=== PATIENT | female | born 1980 | race Caucasian/White ===

== ENCOUNTER 2019-10-27 12:47 | Emergency (ER) | payer MEDICAID ==
[2019-10-27] MEDS ORDERED: NALOXONE HCL INJ 2 MG/2 ML DISP.SYRIN ONE (13:04)
[2019-10-27] MEDS ORDERED: NALOXONE HCL INJ 2 MG/2 ML DISP.SYRIN IV ONE (13:06)
[2019-10-27] MEDS ORDERED: NORMAL SALINE 1000 ML 1,000 ML IV ONE ×2 (13:08→19:09)
[2019-10-27 13:12] LABS: ABSOLUTE BASOPHILS # (AUTO) 0.1 10^3/uL (0.0-0.2); ABSOLUTE EOSINOPHILS # (AUTO) 0.1 10^3/uL (0.0-0.6); ABSOLUTE LYMPHOCYTES (AUTO) 1.4 10^3/uL (0.5-4.7); ABSOLUTE MONOCYTES (AUTO) 0.4 10^3/uL (0.1-1.4); ABSOLUTE NEUT (AUTO) 13.9 10^3/uL (1.7-8.2); BASOPHILS % (AUTO) 0.4 % (0-2); EOSINOPHILS % (AUTO) 0.5 % (0-6); HEMATOCRIT 41.8 % (36.0-47.0); LYMPHOCYTES % (AUTO) 8.6 % (13-45); MEAN CORPUSCULAR HEMOGLOBIN 30.2 pg (27.0-33.4); MEAN CORPUSCULAR HGB CONC 33.5 g/dL (32.0-36.0); MEAN CORPUSCULAR VOLUME 90 fl (80-97); MONOCYTES % (AUTO) 2.4 % (3-13); PLATELET COUNT 314 10^3/uL (150-450); RED BLOOD COUNT 4.63 10^6/uL (3.72-5.28); RED CELL DISTRIBUTION WIDTH 14.5 % (11.5-14.0); SEGMENTED NEUTROPHILS % (AUTO) 88.1 % (42-78); TOTAL CELLS COUNTED % (AUTO) 100 %; WHITE BLOOD COUNT 15.7 10^3/uL (4.0-10.5)
[2019-10-27 13:35] LABS: ALBUMIN 4.2 g/dL (3.5-5.0); ALKALINE PHOSPHATASE 42 U/L (38-126); ANION GAP 9 (5-19); ASPARTATE AMINO TRANSFERASE 25 U/L (14-36); BILIRUBIN,TOTAL 0.2 mg/dL (0.2-1.3); BLOOD UREA NITROGEN 14 mg/dL (7-20); CALCIUM 9.1 mg/dL (8.4-10.2); CARBON DIOXIDE 27 mmol/L (22-30); CHLORIDE 100 mmol/L (98-107); GLUCOSE 260 mg/dL (75-110); POTASSIUM 5.1 mmol/L (3.6-5.0); TOTAL PROTEIN 6.7 g/dL (6.3-8.2)
[2019-10-27 13:37] LABS: ACETAMINOPHEN < 10 ug/mL (10-30); ALCOHOL < 10 mg/dL (NONE DETECTED); SALICYLATE < 1.0 mg/dL (2.0-20.0)
--- NOTE | 2019-10-27 14:23 | RADIOLOGY REPORT (SQ) ---
EXAM DESCRIPTION: CHEST SINGLE VIEW IMAGES COMPLETED DATE/TIME: 10/27/2019 2:09 pm REASON FOR STUDY: Sob COMPARISON: None. EXAM PARAMETERS: NUMBER OF VIEWS: One view. TECHNIQUE: Single frontal radiographic view of the chest acquired. RADIATION DOSE: NA LIMITATIONS: None. FINDINGS: LUNGS AND PLEURA: No opacities, masses or pneumothorax. No pleural effusion. MEDIASTINUM AND HILAR STRUCTURES: No masses. Contour normal. HEART AND VASCULAR STRUCTURES: Heart normal in size. Normal vasculature. BONES: No acute findings. HARDWARE: None in the chest. OTHER: No other significant finding. IMPRESSION: NO ACUTE RADIOGRAPHIC FINDING IN THE CHEST. TECHNICAL DOCUMENTATION: JOB ID: [id number] 2010 [employer]- All Rights Reserved Reading location - IP/workstation name: [email or web address]
[2019-10-27 17:22] LABS: APPEARANCE,URINE CLOUDY; BILIRUBIN,URINE NEGATIVE (NEGATIVE); COLOR,URINE YELLOW; GLUCOSE, URINE 150 mg/dL (NEGATIVE); KETONES,URINE TRACE mg/dL (NEGATIVE); LEUKOCYTE ESTERASE,URINE TRACE (NEGATIVE); NITRITE,URINE NEGATIVE (NEGATIVE); PROTEIN,URINE 100 mg/dL (NEGATIVE); URINE SPECIFIC GRAVITY 1.013; UROBILINOGEN,URINE NEGATIVE mg/dL (<2.0)
[2019-10-27 17:36] LABS: URINE BARBITURATES SCREEN NEGATIVE; URINE BENZODIAZEPINES SCREEN NEGATIVE; URINE COCAINE SCREEN NEGATIVE; URINE METHADONE SCREEN NEGATIVE; URINE PHENCYCLIDINE SCREEN NEGATIVE
[2019-10-27 17:41] LABS: URINE MARIJUANA (THC) SCREEN UNCONFIRMED POSITIVE
--- NOTE | 2019-10-27 18:51 | EKG REPORT ---
SEVERITY:- ABNORMAL ECG - SINUS TACHYCARDIA RUFINO, CONSIDER BIATRIAL ABNORMALITIES LEFT AXIS DEVIATION CONSIDER RIGHT VENTRICULAR HYPERTROPHY : Confirmed by: Steve Oscar MD 27-Oct-2019 18:51:11
--- NOTE | 2019-10-27 19:42 | RADIOLOGY REPORT (SQ) ---
EXAM DESCRIPTION: CT HEAD WITHOUT IMAGES COMPLETED DATE/TIME: 10/27/2019 7:32 pm REASON FOR STUDY: accidenental fall/closed head injury COMPARISON: None. TECHNIQUE: Axial images acquired through the brain without intravenous contrast. Images reviewed wi th bone, brain and subdural windows. Additional sagittal and coronal reconstructions were generated. Images stored on PACS. All CT scanners at this facility use dose modulation, iterative reconstruction, and/or weight based d osing when appropriate to reduce radiation dose to as low as reasonably achievable (ALARA). [facility]: Dose Right [facility]: CareDose [facility]: Dose Right [facility]: Teradose 4D [facility]: WhistleTalk RADIATION DOSE: CT Rad equipment meets quality standard of care and radiation dose reduction techniq ues were employed. CTDIvol: 53.2 mGy. DLP: 991 mGy-cm. mGy. LIMITATIONS: None. FINDINGS: VENTRICLES: Normal size and contour. CEREBRUM: No masses. No hemorrhage. No midline shift. No evidence for acute infarction. Normal gra y/white matter differentiation. No areas of low density in the white matter. CEREBELLUM: No masses. No hemorrhage. No alteration of density. No evidence for acute infarction. EXTRAAXIAL SPACES: No fluid collections. No masses. ORBITS AND GLOBE: No intra- or extraconal masses. Normal contour of globe without masses. CALVARIUM: No fracture. PARANASAL SINUSES: No fluid or mucosal thickening. SOFT TISSUES: No mass or hematoma. OTHER: No other significant finding. IMPRESSION: NORMAL BRAIN CT WITHOUT CONTRAST. EVIDENCE OF ACUTE STROKE: NO. COMMENT: Quality ID # [id number]: Final reports with documentation of one or more dose reduction techniques (e.g., Automated exposure control, adjustment of the mA and/or kV according to patient size, use of iterative reconstruction technique) TECHNICAL DOCUMENTATION: JOB ID: [id number] 2010 [employer]- All Rights Reserved Reading location - IP/workstation name: [email or web address]
--- NOTE | 2019-10-27 20:54 | ER Document Report ---
Entered by INGE MEHTA SCRIBE 10/27/19 1307 Acting as scribe for:AJNETH DANIEL MD ED Substance Abuse / Acc. OD <ANNIE KIRBY - Last Filed: 10/27/19 20:41> - General Mode of Arrival: Wheelchair Cannot obtain history due to: Altered mental status <JANETH DANIEL - Last Filed: 10/27/19 20:54> - General Chief Complaint: Possible Overdose Stated Complaint: POSSIBLE OVERDOSE Primary Care Provider: [facility] [Provider Group] - Follow up as needed (Outpatient dual diagnosis mental health and substance abuse treatment Walk in Thursday-Thursday 8:00AM-4:30PM) [facility] [Outside] - Follow up as needed (Can walk in or call for voluntary inpatient services) [facility] [Outside] - Follow up as needed [facility] [Outside] - Follow up as needed Notes: This 39 year old female patient presents to the emergency department today for complaints of a possible overdose. Patient is somnolent and unable to really provide any history. (JANETH DANIEL) - Related Data Allergies/Adverse Reactions: No Known Allergies Allergy (Verified 10/27/19 13:50) Past Medical History - General Cannot obtain history due to: Altered mental status - Social History Smoking Status: Unknown if Ever Smoked Lives with: Family Family History: Reviewed & Not Pertinent Surgical Hx: Negative <JANETH DANIEL - Last Filed: 10/27/19 20:54> Review of Systems - Review of Systems -: Yes ROS unobtainable due to patient's medical condition <JANETH DANIEL - Last Filed: 10/27/19 20:54> Physical Exam - Vital signs Vitals: Temp 98.8 F 10/27/19 13:00 Course - Laboratory Result Diagrams: 10/27/19 12:57 10/27/19 12:57 <ANNIE KIRBY - Last Filed: 10/27/19 20:41> - Laboratory Result Diagrams: 10/27/19 12:57 10/27/19 12:57 - Diagnostic Test Radiology reviewed: Image reviewed, Reports reviewed <JANETH DANIEL - Last Filed: 10/27/19 20:54> - Re-evaluation Re-evalutation: 10/27/19 19:12 Patient is alert and oriented except there is some loss of details of what happened today she says she awakened while in the ED she knows she is in the hospital did not know exactly where patient knows she is in [place] staying with her son who lives here in [place]. Patient is from [facility]. Patient admits that she used IV heroin today and that she has been clean for several months. Denies any suicidal homicidal ideation. Patient admits that she has bipolar disease. 10/27/19 20:52 Patient is medically stable and has been evaluated by the mental health team. Patient is medically cleared for discharge and patient will have resources to follow-up with regarding help with her accidental drug overdose of heroin. (JANETH DANIEL) - Vital Signs Vital signs: Temp Pulse Resp BP Pulse Ox 98.2 F 18 93/58 L 100 10/27/19 17:01 10/27/19 20:01 10/27/19 20:01 10/27/19 20:01 - Laboratory Laboratory results interpreted by me: 10/27/19 10/27/19 10/27/19 12:57 12:57 17:09 WBC 15.7 H RDW 14.5 H Lymph % (Auto) 8.6 L [place] % (Auto) 2.4 L Absolute Neuts (auto) 13.9 H Seg Neutrophils % 88.1 H Sodium 136.4 L Potassium 5.1 H Est GFR (MDRD) Non-Af 54 L Glucose 260 H Urine Protein 100 H Urine Glucose (UA) 150 H Urine Ketones TRACE H Ur Leukocyte Esterase TRACE H Salicylates < 1.0 L Acetaminophen < 10 L Laboratories does not show any acute process patient does have a 15,000 white count without evidence of infection. Patient also has a glucose of 260. (JANETH DANIEL) - Diagnostic Test Radiology results interpreted by me: 10/27/19 19:11 Chest x-ray shows no acute process. 10/27/19 20:53 CT scan of head shows no acute process. No evidence for stroke no trauma. (JANETH DANIEL) - EKG Interpretation by Me Additional EKG results interpreted by me: 10/27/19 19:11 Twelve-lead EKG shows sinus tachycardia, and no acute ST-T changes. Consider right ventricular hypertrophy. (JANETH DANIEL) Discharge <ALKIRE,ANNIE - Last Filed: 10/27/19 20:41> <JANETH DANIEL - Last Filed: 10/27/19 20:54> - Discharge Clinical Impression: Overdose, Methamphetamine use, Cannabis abuse, Opiate use Condition: Stable Disposition: REHAB FACILITY Additional Instructions: You have been evaluated by both medical and behavioral health teams for an overdose of methamphetamine and heroin. You have been deemed appropriate for discharge. While in the emergency department you received the following services: Medical screening and assessment, nursing services, dietary services, pharmacological services, one-on-one counseling and/or psychotherapy, environmental services, and continuous observation by a patient product safety manager. You have been provided outpatient substance abuse resources for local voluntary detoxification and treatment, outpatient dual diagnosis treatment and mobile crisis. Overdose You have taken more medication than you should have. After your evaluation and care, it is felt that your overdose is not likely to be harmful or of any significant consequences to you and you are being discharged. In the future, you should be careful not to take more medications than what is prescribed for you. Although your overdose does not seem to be of any danger to you at this time, if you develop any unusual or unexpected symptoms after your discharge, you should return to the Emergency Department immediately for re-evaluation. NARCOTIC / OPIOD ABUSE: Narcotics and opiods are pain-relieving drugs that are often abused. They are addicting. Narcotics cause euphoria, but it often takes increasing amounts to "feel good" and avoid withdrawal symptoms. Overdose of narcotics causes small pupils, coma, and decreased breathing. It's a common cause of . Purity of street narcotics is unpredictable. Injection of narcotics is risky for abscesses, endocarditis (heart infection), pneumonia, and AIDS. Withdrawal from narcotics causes goose bumps, watery mouth, sweating, nasal congestion, muscle aches, abdominal cramps, vomiting, and diarrhea. There's o ften restlessness and confusion. Treatment programs are available, but you must make the decision to quit. Medication (such as clonidine) can be prescribed to control the symptoms of withdrawal. AMPHETAMINE / METHAMPHETAMINE ABUSE: Amphetamines are addicting stimulants. Amphetamines overstimulate the nervous system and give a false feeling of power and mastery. These drugs may be obtained as prescription pills for weight loss, narcolepsy, or attention-deficit disorder. More often they're bought as an illegal street drug, methamphetamine (crank, crystal, speed). Using amphetamines repeatedly can lead to serious medical problems including malnutrition, severe depression, and paranoia. It can take increasing amounts to feel good. Eventually, there will be a "burn out." When you go off amphetamines there is a period of depression that may last for weeks or even months. High doses of amphetamines can cause seizures, confusion, hallucinations, delusions, high blood pressure, muscle damage, heart damage, or sudden . Many times these deadly complications occur even with "normal" doses. Injection of amphetamines is risky for developing abscesses, endocarditis (heart infection), pneumonia, and AIDS. Withdrawal from amphetamines often causes anxiety, depression, and drug cravings. Some users become paranoid and psychotic. There may be cramps, nausea, and vomiting. Many treatment programs are available, but you must make the decision to quit. Medication can be prescribed to control the symptoms of amphetamine toxicity (beta blockers or benzodiazepines). Withdrawal symptoms may require tranquilizers. OVERDOSE / INGESTION: You have taken more medication than you should have. After your evaluation and care, it is felt that your overdose is not likely to be harmful or of any significant consequences to you and you are being discharged. In the future, you should be careful not to take more medications than what is prescribed for you. Although your overdose does not seem to be of any danger to you at this time, if you develop any unusual or unexpected symptoms after your discharge, you should return to the Emergency Department immediately for re-evaluation. FOLLOW-UP CARE: You are recommended to utilize [facility] for voluntary detoxification and substance abuse treatment. If you experience worsening or a significant change in your symptoms notify your physician immediately, return to the Emergency Department at any time for re-evaluation or utilize mobile crisis. Referrals: [facility] [Outside] - Follow up as needed (Can walk in or call for voluntary inpatient services) [facility] [Outside] - Follow up as needed [facility] [Outside] - Follow up as needed [facility] [Provider Group] - Follow up as needed (Outpatient dual diagnosis mental health and substance abuse treatment Walk in Thursday-Thursday 8:00AM-4:30PM) I personally performed the services described in the documentation, reviewed and edited the documentation which was dictated to the scribe in my presence, and it accurately records my words and actions.
[2019-10-27 21:32] VITALS: BP 112/73
--- NOTE | 2019-10-28 08:11 | PSYCHOLOGICAL NOTE ---
Psych Note - Psych Note Date seen by psych provider: 10/27/19 Time seen by psych provider: 13:20 - 1320 JPD present. [id number] medical staff checking monitor. [id number] brief interaction/assessment. Went to Head CT at 1927. Another assessment at 1940. Psych Note: Presenting Problem: Patient is a 39 year old female who presented to the [facility] ED today via POV adult aged son dropped her off with her belongings and said she's been using and has illegal substances but unsure what. Medical documentation noted she responded only to pain and when given IV Narcan was more responsive. Patient told medical staff she took methamphetamine then said she took heroin. She stated she injected it into right arm and medical staff documented there was a small red briana. Documentation noted patient presented somnolent. Patient was sleeping but woke up quickly to her name. She identified she was thirsty. She reported "I was clean for 3 years." She said she relapsed today after "trying to help someone else get clean, they had a bag, I've been going through a lot, I took the bag and used some, I shouldn't have taken it." She admitted she injected it and that was method of use previously. She confirmed her son lives locally and she is from [place]. She stated she didn't want son to know anything and was made aware he was the one that reportedly dropped her off. She denied trying to do anything to hurt or kill self. She denied history of hurting or trying to kill self. Patient presented groggy. This clinician assessed patient again later evening and she stated the same information, that she has relapsed, denied trying to hurt/kill self and denied current SI. This second time she was more awake, alert and oriented. She stated her plan was to go back to [place] but said she would take the local outpatient resources. She asked this clinician to put the resource sheets in her book bag that was on the counter in room. She said to put it in the big part which was unzipped. Patient stated she injected a mixture of Methamphetamine and Heroin. She was informed her drug screen was positive for the Methamphetamine and Cannabis. Patient was alert and oriented to self, person, place and situation. Mood was difficult to ascertain given groggy state initially but later was becoming more euthymic. She denied current SI/HI and history. Patient did not appear to be responding to internal stimuli as evidenced by answering questions appropriately when addressed. Thought processes were difficult to ascertain given groggy state initially but later seemed linear given willingness to take local resource sheet since she is here now and when she visits since son resides locally. Conversational speech was slow in rate and soft in tone but audible and understandable. Intellectual abilities are estimated to be average. Insight, judgment and impulse control were fair to poor as evidenced by injecting drugs after 3 years of sobriety and thus groggy state but as she sobered up became more fair. Attending ED Nurse stated JPJie felt the substance was heroin and they confiscated it. In addition there was a prescription pill bottle of narcotics/the name was almost scratched off/not patient's name/last name Avelar. Diagnosis: Accidental Overdose Polysubstance Use Methamphetamine Cannabis Heroin Impression/Plan: Patient is cleared from acute psychiatric services. Patient presented for an overdose. She stated she relapsed this morning after 3 years of sobriety. She denied SI/HI and no observed psychosis. She was initially groggy but as she sobered up became more awake, alert and oriented. Provided the out patient mental health resource sheet which highlighted both [facility] numbers and documented they are for crisis/talk therapy/linkage, also highlighted [facility] for outpatient services and documented walk in times. Provided the substance abuse resource sheet which highlighted [facility] for voluntary inpatient detox and substance abuse treatment. Recommended she utilize [facility]. Consulted with Dr. Lezama regarding the management and care of patient. ED Physician in agreement with recommendations.
== END 2019-10-27 21:32 | disposition home or self-care (01) ==
LOC: ER 12:47
DX: T40.1X1A Poisoning by heroin, accidental (unintentional), initial encounter (principal); Y92.009 Unspecified place in unspecified non-institutional (private) residence as the place of occurrence of the external cause; F12.10 Cannabis abuse, uncomplicated; R41.82 Altered mental status, unspecified; R00.0 Tachycardia, unspecified
CPT/HCPCS: 93005; 99285; 96361; 96374; 36415; 80307 ×4; 84703; 85025; 80053; 81001; 84484; 71045; 70450; 93010; J2310; J7030